=== PATIENT | female | born 1990 | race American Indian/Alaskan Native ===

== ENCOUNTER 2017-05-19 16:23 | Inpatient (IN) | payer OTHER ==
[~2017-05-19] VITALS: Ht 154.9 cm; Wt 1976.0 kg
[2017-05-19] MEDS ORDERED: PRENATAL TABLE1 EACH PO (18:18)
[2017-05-19] MEDS ORDERED: ASPIR 8181 MG PO (18:18)
== END 2017-05-29 17:46 | disposition home or self-care (01) | DRG 765 ==
LOC: OBS/DEL 16:23 → LDR 16:37 → OB/GYN 16:37
PROVIDERS: Obstetrics & Gynecology
PROC: 4A1HXCZ Monitoring of Products of Conception, Cardiac Rate, External Approach (ICD-10-PCS; 2017-05-19)
PROC: BY4GZZZ Ultrasonography of Third Trimester, Multiple Gestation (ICD-10-PCS; 2017-05-19)
PROC: BU46ZZZ Ultrasonography of Uterus (ICD-10-PCS; 2017-05-19)
PROC: 3E0F7GC Introduction of Other Therapeutic Substance into Respiratory Tract, Via Natural or Artificial Opening (ICD-10-PCS; 2017-05-22)
PROC: 4A033R1 Measurement of Arterial Saturation, Peripheral, Percutaneous Approach (ICD-10-PCS; 2017-05-25)
PROC: B246ZZZ Ultrasonography of Right and Left Heart (ICD-10-PCS; 2017-05-25)
PROC: 10D00Z1 Extraction of Products of Conception, Low, Open Approach (ICD-10-PCS; principal; 2017-05-25 14:00)
PROC: BB24Y0Z Computerized Tomography (CT Scan) of Bilateral Lungs using Other Contrast, Unenhanced and Enhanced (ICD-10-PCS; 2017-05-27)
DX: O32.1XX2 Maternal care for breech presentation, fetus 2 (principal); O60.14X2 Preterm labor third trimester with preterm delivery third trimester, fetus 2; J81.0 Acute pulmonary edema; J45.901 Unspecified asthma with (acute) exacerbation; O99.513 Diseases of the respiratory system complicating pregnancy, third trimester; O30.043 Twin pregnancy, dichorionic/diamniotic, third trimester; Z3A.33 33 weeks gestation of pregnancy; Z37.2 Twins, both liveborn; O24.410 Gestational diabetes mellitus in pregnancy, diet controlled; O99.613 Diseases of the digestive system complicating pregnancy, third trimester; K52.9 Noninfective gastroenteritis and colitis, unspecified; O99.013 Anemia complicating pregnancy, third trimester; D64.89 Other specified anemias

== ENCOUNTER 2017-06-04 19:28 | Inpatient (IN) | payer OTHER ==
[~2017-06-04 19:28] MED LIST: ASPIR 8181 MG PO; PRENATAL TABLE1 EACH PO
== END 2017-06-10 18:24 | DRG 603 ==
LOC: OB/GYN 19:28
PROC: BQ41ZZZ Ultrasonography of Left Hip (ICD-10-PCS; principal; 2017-06-06)
DX: L02.31 Cutaneous abscess of buttock (principal); L03.317 Cellulitis of buttock